=== PATIENT | female | born 1965 | race Caucasian/White ===

== ENCOUNTER 2018-01-16 19:14 | Observation (INO) ==
[2018-01-17] MEDS ORDERED: Bisacodyl 10 MG Supp RECTAL PRN (01:29)
[2018-01-17] MEDS ORDERED: Gadobutrol PF 10 MMOL/10 ML Vial (for RAD) IV.SIG ONE (01:30)
[2018-01-17] MEDS ORDERED: Dextrose 50% in Water 50 ML Vial IV.PUSH PRN (01:37)
[2018-01-17] MEDS: Insulin NovoLOG Aspart Correctional Sugar Inj SQ SCH ×5 (03:40→21:37)
[2018-01-17] MEDS: Sod Chloride 0.9% Inj 1,000 ML IV.CONT SCH ×2 (03:41→15:23)
[2018-01-17] MEDS: Aspirin 325 MG Tablet PO SCH (08:19)
--- NOTE | 2018-01-17 08:44 | US ---
EXAM DATE: 01/17/2018 8:37 AM EDT AGE/SEX: 52 years / Female INDICATIONS: Numbness in right face and hand. CLINICAL DATA: This is the patient's initial encounter. Patient reports that signs and symptoms have been present for 1 day and indicates a pain score of 0/10. MEDICAL/SURGICAL HISTORY: Hypertension. Cholecystectomy. Tubal ligation. Tonsillectomy. COMPARISON: No prior exams available for comparison. No external comparison. VELOCITY PARAMETERS: ICA/CCA Ratio: Right 0.9 , Left 1.0 ICA: Right 77 cm/sec, Left 89 cm/sec CCA: Right 86 cm/sec, Left 86 cm/sec ECA: Right 99 cm/sec, Left 117 cm/sec Vertebral: Right 41 cm/sec antegrade, Left 43 cm/sec antegrade FINDINGS: Right Carotid: No significant plaque is visualized.The waveforms are within normal limits. Left Carotid: No significant plaque is visualized. The waveforms are within normal limits. Other: None. CONCLUSION: No evidence of flow-limiting carotid stenosis. Electronically signed by: Kris Galvin MD 01/17/2018 8:43 AM EDT
--- NOTE | 2018-01-17 09:32 | ECHRPT ---
Indication: CVA/TIA CONCLUSIONS The left ventricular systolic function is normal with an estimated ejection fraction in the range of 60-65%. Normal left ventricular size. Wall thickness is normal. No definite regional wall motion abnormalities are present. Trace mitral valve regurgitation. Mild mitral annular calcification. BP: / HR: Rhythm: Sinus MEASUREMENTS (Male / Female) Normal Values Technical Quality:Poor 2D ECHO LV Diastolic Diameter PLAX 3.9 cm 4.2 - 5.9 / 3.9 - 5.3 cm LV Systolic Diameter PLAX 2.7 cm IVS Diastolic Thickness 1.0 cm 0.6 - 1.0 / 0.6 - 0.9 cm LVPW Diastolic Thickness 1.0 cm 0.6 - 1.0 / 0.6 - 0.9 cm LV Relative Wall Thickness 0.5 LVOT Diameter 1.7 cm LA Systolic Diameter LX 3.3 cm 3.0 - 4.0 / 2.7 - 3.8 cm LV Ejection Fraction MOD 4C 65.9 % LV Ejection Fraction 4C AL 66.9 % M-MODE Aortic Root Diameter MM 1.7 cm LA Systolic Diameter MM 3.3 cm LA Ao Ratio MM 1.9 AV Cusp Separation MM 2.0 cm DOPPLER AV Peak Velocity 162.0 cm/s AV Peak Gradient 10.5 mmHg LVOT Peak Velocity 100.0 cm/s LVOT Peak Gradient 4.0 mmHg AV Area Cont Eq pk 1.4 cm MV Area PHT 3.4 cm Mitral E Point Velocity 93.3 cm/s Mitral A Point Velocity 83.4 cm/s Mitral E to A Ratio 1.1 LV E' Lateral Velocity 6.8 cm/s Mitral E to LV E' Lateral Ratio 13.7 LV E' Septal Velocity 5.9 cm/s Mitral E to LV E' Septal Ratio 15.7 PV Peak Velocity 99.1 cm/s PV Peak Gradient 3.9 mmHg FINDINGS LEFT VENTRICLE The left ventricular systolic function is normal with an estimated ejection fraction in the range of 60-65%. Normal left ventricular size. Wall thickness is normal. No regional wall motion abnormalities are present. RIGHT VENTRICLE Normal right ventricular size and systolic function. LEFT ATRIUM The left atrial size is normal. RIGHT ATRIUM The right atrial size is normal. ATRIAL SEPTUM Normal atrial septal thickness without atrial level shunting by limited color doppler interrogation. AORTA The aortic root and proximal ascending aorta are normal in size on limited imaging. MITRAL VALVE Mild mitral annular calcification. Trace mitral valve regurgitation. AORTIC VALVE Trileaflet aortic valve. No aortic valve stenosis or regurgitation. TRICUSPID VALVE Structurally normal tricuspid valve. No tricuspid valve stenosis or regurgitation. PULMONARY VALVE The pulmonary valve is not well visualized. VESSELS The inferior vena cava is normal in size. PERICARDIUM No pericardial effusion. Jeison Toney MD (Electronically Signed) Final Date:17 January 2018 09:31
--- NOTE | 2018-01-17 11:06 | P.HP ---
History of Present Illness Primary Care Physician: alexander Ramirez Chief Complaint: Right facial numbness, right hand paresthesia History of Present Illness: 52-year-old female with known history of hypertension, diabetes who presented to the hospital for evaluation of right facial numbness and right hand paresthesia. Patient states that her symptoms started 3 days ago on Sunday where she woke up first thing in the morning with left facial numbness. She thought she just may have slept on it wrong and did not pay much attention to it. However the right facial numbness persisted over the next 2 days and then she started developing a right hand numbness and tingling sensation and because of the new symptoms she went to the emergency department for evaluation. Patient has CT scan done which was unremarkable for any acute stroke. Patient denies any visual disturbances, dysphagia, extremity weakness, disequilibrium, ataxia, expressive dysphasia. Patient was started on full dose aspirin and recommended observation the hospital for further neurological evaluation. - Diagnosis (1) Neurological symptoms (2) Right facial numbness (3) Right hand paresthesia Review of Systems All other systems reviewed negative except as stated in HPI Neurologic: Reports tingling/numbness/burning sensations (Right side of the face and right hand) [facility] - History History Provided By: Patient - Medical History Medical History: Medical History (Last Reviewed 01/17/18 @ 11:02 by AMY Oro) Diabetes HTN (hypertension) - Surgical History Surgical History: Surgical History (Last Reviewed 01/17/18 @ 11:02 by AMY Oro) History of cholecystectomy Hx of tonsillectomy Hx of tubal ligation - Family History Family History: Family History (Last Updated 01/17/18 @ 10:54 by AMY Oro) Mother History of diabetes mellitus History of heart disease Father History of diabetes mellitus - Tobacco History Second Hand Smoke Exposure: No Smoking Status: Never smoker - Alcohol History How Often Do You Have a Drink Containing Alcohol: Monthly or less - Substance Use History Substance History: No History of Abuse Medications and Allergies Active Medications: Active Medications Al Hydroxide/Mg Hydroxide (Milk Of Magnesia Liq) 30 ml PO Q12H PRN PRN Reason: Mild Constipation Aspirin (Aspirin) 325 mg PO DAILY LAYLA Last Admin: 01/17/18 08:19 Dose: 325 mg Bisacodyl (Dulcolax Supp) 10 mg RECTAL DAILY PRN PRN Reason: SEVERE CONSITIPATION Dextrose (D50w Vial) 50 ml IV.PUSH UNSCH PRN PRN Reason: PER HYPOGLYCEMIA PROTOCOL Glucagon (Glucagon Inj) 1 mg OTHER PRN PRN PRN Reason: for Hypoglycemia Protocol Sodium Chloride (Ns Inj) 1,000 mls @ 70 mls/hr IV.CONT .[id number] LAYLA Last Admin: 01/17/18 03:41 Dose: 70 mls/hr Insulin Aspart (Novolog Insulin Correctional Sugar Inj) 0 unit SQ ACHS AND 3AM LAYLA; Protocol Last Admin: 01/17/18 08:18 Dose: 5 unit Sennosides (Senokot) 17.2 mg PO Q12H PRN PRN Reason: Moderate Constipation Allergies Allergy/AdvReac Type Severity Reaction Status Date / Time Penicillins Allergy Severe Swelling Verified 01/16/18 19:28 Home Medications Medication Instructions Recorded Confirmed Type sitagliptin-metformin [Janumet] 1 tab PO BID 01/16/18 01/17/18 History gabapentin 600 mg PO TID 01/17/18 01/17/18 History insulin glargine [Lantus U-100 40 unit SUB-Q BID 01/17/18 01/17/18 History Insulin] losartan 50 mg PO DAILY 01/17/18 01/17/18 History Exam Vital signs: Vital Signs 01/17/18 00:00 01/17/18 01:00 01/17/18 04:00 Temperature 97.5 F L 96 F L Pulse Rate 84 76 75 Respiratory Rate 20 20 Blood Pressure 182/94 H 137/65 Pulse Oximetry 97 96 01/17/18 05:07 01/17/18 08:00 01/17/18 08:32 Temperature 96 F L 97.4 F L Pulse Rate 75 77 76 Respiratory Rate 20 16 Blood Pressure 137/65 124/61 Pulse Oximetry 96 96 Intake & Output 01/16/18 01/17/18 01/17/18 18:59 06:59 18:59 Intake Total 0 / 0 Balance 0 / 0 Weight 87.5 kg Intake: Oral 0 / 0 Other: # Voids 0 Weight On Admission 81.8 kg Narrative: GENERAL: Well-developed, well-nourished, in no acute distress. alert and orientated HEENT: Head is normocephalic without any lesions or masses noted. Facial features are symmetric. Eyes: Pupils equal round reactive to light. Extraocular muscles are intact. Conjunctivae were clear. Oropharyngeal: Pharynx without any erythema edema. Tongue is midline without deviation. Buccal mucosa is moist without any masses or lesions NECK: Supple without any masses. Trachea midline no deviation. No JVD, no bruits are appreciated CARDIAC: Regular rhythm, regular rate. S1/S2 are heard. No murmurs gallops or rubs. LUNGS: Clear to auscultation bilaterally. No wheeze, rhonchi or rales. No use of accessory muscles on inspiration or expiration. ABDOMEN: Soft, nontender. Nondistended. Bowel sounds heard in all 4 quadrants. No organomegaly or masses. Negative rebound, negative guarding EXTREMITIES: No edema, pulses are equal bilaterally. No cyanosis or clubbing NEUROLOGY: Mood and affect appear appropriate. Cranial nerves II through XII are grossly intact, muscle strength 5/5 in upper and lower extremities bilaterally. Deep tendon reflexes are 2+ in upper and lower extremities bilaterally. Results - Labs CBC & Chem 7: 01/17/18 10:51 01/17/18 10:51 Labs: Laboratory Results - last 24 hr 01/17/18 01/17/18 03:37 07:36 POC Glucose 296 H 256 H - Imaging Impressions Carotid Doppler Study 01/17/18 00:00 CONCLUSION: No evidence of flow-limiting carotid stenosis. Caprini VTE Risk Assessment Caprini VTE Risk Assessment: No/Low Risk (score <= 1) Caprini Risk Assessment Model: Point Value = 1 Point Value = 2 Point Value = 3 Point Value = 5 Age 41-60 Minor surgery BMI > 25 kg/m2 Swollen legs Varicose veins or History of unexplained or recurrent spontaneous Oral contraceptives or hormone replacement Sepsis (< 1 month) Serious lung disease, including pneumonia (< 1 month) Abnormal pulmonary function Acute myocardial infarction Congestive heart failure (< 1 month) History of inflammatory bowel disease Medical patient at bed rest Age 61-74 Arthroscopic surgery Major open surgery (> 45 min) Laparoscopic surgery (> 45 min) Malignancy Confined to bed (> 72 hours) Immobilizing plaster cast Central venous access Age >= 75 History of VTE Family history of VTE Factor V Leiden Prothrombin [id number] Lupus anticoagulant Anticardiolipin antibodies Elevated serum homocysteine Heparin-induced thrombocytopenia Other congenital or acquired thrombophilia Stroke (< 1 month) Elective arthroplasty Hip, pelvis, or leg fracture Acute spinal cord injury (< 1 month) Prophylaxis Regimen: Total Risk Factor Score Risk Level Prophylaxis Regimen 0-1 Low Early ambulation 2 Moderate Order ONE of the following: *Sequential Compression Device (SCD) *Heparin 5000 units SQ BID 3-4 Higher Order ONE of the following medications: *Heparin 5000 units SQ TID *Enoxaparin/Lovenox 40 mg SQ daily (WT < 150 kg, CrCl > 30 mL/min) *Enoxaparin/Lovenox 30 mg SQ daily (WT < 150 kg, CrCl > 10-29 mL/min) *Enoxaparin/Lovenox 30 mg SQ BID (WT < 150 kg, CrCl > 30 mL/min) AND/OR *Sequential Compression Device (SCD) 5 or more Highest Order ONE of the following medications: *Heparin 5000 units SQ TID (Preferred with Epidurals) *Enoxaparin/Lovenox 40 mg SQ daily (WT < 150 kg, CrCl > 30 mL/min) *Enoxaparin/Lovenox 30 mg SQ daily (WT < 150 kg, CrCl > 10-29 mL/min) *Enoxaparin/Lovenox 30 mg SQ BID (WT < 150 kg, CrCl > 30 mL/min) AND *Sequential Compression Device (SCD) Assessment and Plan - Assessment (1) Neurological symptoms Code(s): R29.90 - Unspecified symptoms and signs involving the nervous system Status: Acute (2) Right facial numbness Code(s): R20.0 - Anesthesia of skin Status: Acute (3) Right hand paresthesia Code(s): R20.2 - Paresthesia of skin Status: Acute - Plan Neurological symptoms with right facial numbness, right hand paresthesia -We will need to we will need to evaluate and rule out for CVA, Brennan's palsy, cervical radiculopathy -CT of the head did not indicate any acute abnormality -Brain were performed and indicated -Echocardiogram results above -Carotid ultrasound was unremarkable for any dynamically significant stenosis -Further laboratory studies to include B12, folate, sed rate, TSH, lipid panel, hemoglobin A1c -Continue aspirin -PT/OT/ST evaluations -Consult neurology for further recommendations Hypertension -Continue home medications Diabetes -Accu-Cheks with sliding scale insulin -Diabetic diet DVT prevention -Sequential compression devices
--- NOTE | 2018-01-17 11:06 | MR ---
EXAM DATE: 01/17/2018 10:50 AM EDT AGE/SEX: 52 years / Female INDICATIONS: CVA. Right sided numbness. CLINICAL DATA: This is the patient's initial encounter. Patient reports that signs and symptoms have been present for 1 day and indicates a pain score of 0/10. MEDICAL/SURGICAL HISTORY: Hypertension. Diabetes mellitus type II. Cholecystectomy. Tonsillec srinivasan. Tubal ligation. COMPARISON: No prior exams available for comparison. TECHNIQUE: 3D [id number] MRA was performed. Source images, multiplanar STS MIP, and 3D volum e MIP reconstructions were reviewed. FINDINGS: There is excellent visualization of the major intracranial arteries out to the second-order branch ve ssels. There is no evidence for aneurysm There or vascular malformation. There are findings of high- grade stenosis involving the M1 segment at its origin. Bolus infused CT angiography of the brain is r ecommended for further evaluation. There Is a origin of the posterior cerebral artery on the le ft. There is a patent posterior communicating artery on the right. CONCLUSION: Findings of high-grade stenosis at the origin of the right middle cerebral artery. Bolus infused CT a ngiography of the brain is recommended for further evaluation. Electronically signed by: Trent Nicholas MD 01/17/2018 11:05 AM EDT
[2018-01-17 11:07] LABS: Baso # (Auto) 0.1 th/mm3 (0.0-0.2); Baso % (Auto) 1.1 % (0.0-2.0); Eos # (Auto) 0.3 th/mm3 (0.0-0.4); Eos % (Auto) 4.3 % (0.0-4.0); Hematocrit 37.7 % (35.0-46.0); Lymph # (Auto) 2.3 th/mm3 (1.0-4.8); Lymph % (Auto) 32.1 % (9.0-44.0); Mean Corpuscular HGB Conc 31.9 % (32.0-36.0); Mean Corpuscular Hemoglobin 23.2 pg (27.0-34.0); Mean Corpuscular Volume 72.5 fL (80.0-100.0); Mean Platelet Volume 8.6 fL (7.0-11.0); Mono # (Auto) 0.6 th/mm3 (0.0-0.9); Mono % (Auto) 8.7 % (0.0-8.0); Neut # (Auto) 3.9 th/mm3 (1.8-7.7); Neut % (Auto) 53.8 % (16.0-70.0); Platelet Count 341 th/mm3 (150-450); Red Cell Distribution Width 17.3 % (11.6-17.2); White Blood Count 7.2 th/mm3 (4.0-11.0)
--- NOTE | 2018-01-17 11:22 | MR ---
EXAM DATE: 01/17/2018 10:50 AM EDT AGE/SEX: 52 years / Female INDICATIONS: CVA. Right sided numbness. CLINICAL DATA: This is the patient's initial encounter. Patient reports that signs and symptoms have been present for 1 day and indicates a pain score of 0/10. MEDICAL/SURGICAL HISTORY: Hypertension. Diabetes mellitus type II. Thyroidectomy. Tubal ligat ion. Cholecystectomy. COMPARISON: No prior exams available for comparison. TECHNIQUE: Multiplanar, multisequence examination of the brain was performed without contrast. FINDINGS: MRI of the brain is performed in sagittal, axial and coronal planes. The craniocervical junction and midline structures are unremarkable. Diffusion weighted images demonstrate no abnormality. No acute c ortical infarction, acute hemorrhage, mass effect or midline shift is seen.There is periventricular h yperintensity on the T2 weighted images consistent with small vessel vascular disease slightly more t benavides expected in a patient of this age. Posterior fossa structures are unremarkable. CONCLUSION: No evidence of acute intracranial pathology. Chronic ischemic changes as above. Some of the white ma tter lesions have an appearance consistent with multiple sclerosis and correlation with clinical hist ory is necessary. Electronically signed by: Trent Nicholas MD 01/17/2018 11:21 AM EDT
[2018-01-17 11:56] LABS: Albumin 3.2 g/dL (3.4-5.0); Calcium 8.2 mg/dL (8.5-10.1); Carbon Dioxide 28.7 meq/L (21.0-32.0); Glucose,Random 254 mg/dL (74-106)
[2018-01-17 11:57] LABS: Anion Gap 7 meq/L (5-15); Chloride 103 meq/L (98-107); Potassium 4.4 meq/L (3.5-5.1); Sodium 139 meq/L (136-145)
[2018-01-17 12:00] LABS: Aspartate Aminotransferase 17 U/L (15-37); Glomerular Filtration Rate Greater Than 89 mL/min (>89)
[2018-01-17] MEDS: Gabapentin 300 MG Capsule PO SCH ×2 (12:00→17:20)
[2018-01-17 12:01] LABS: Total Protein 7.8 g/dL (6.4-8.2)
[2018-01-17 12:02] LABS: Alkaline Phosphatase 66 U/L (45-117)
[2018-01-17 12:11] LABS: Alanine Aminotransferase 23 U/L (10-53)
[2018-01-17 12:14] LABS: Blood Urea Nitrogen 11 mg/dL (7-18)
[2018-01-17 14:17] LABS: Triglycerides 426 mg/dL (42-150)
[2018-01-17 14:22] LABS: Chol/HDL Ratio 9.93 Ratio; Cholesterol 287 mg/dL (120-200); HDL Cholesterol 28.9 mg/dL (40.0-60.0)
[2018-01-17 14:41] LABS: Vitamin B12 986 pg/mL (193-986)
--- NOTE | 2018-01-17 16:23 | CT ---
EXAM DATE: 01/17/2018 4:08 PM EDT AGE/SEX: 52 years / Female INDICATIONS: Right facial numbness. Right hand parasthenia. Abnormal MRI. CLINICAL DATA: This is the patient's initial encounter. Patient reports that signs and symptoms have been present for 4 - 6 days and indicates a pain score of 0/10. MEDICAL/SURGICAL HISTORY: Diabetes. Hypertension. Tubal ligation. Cholecystectomy. RADIATION DOSE: 41.90 CTDI (mGy) COMPARISON: [facility], CT HEAD W/O CONTRAST, 01/16/2018. . TECHNIQUE: Volumetric scanning was performed using a multi-row detector CT scanner during bolus infu addie of 75 ml Omnipaque 350 (iohexol) nonionic water-soluble contrast as a single exam dose. The d shahid was post processed with a variety of visualization algorithms including full volume maximum inten sity projection, multi-planar sliding thin slab reformation, curved planar reformation, and surface r endering techniques. Using automated exposure control and adjustment of the mA and/or kV according t o patient size, radiation dose was kept as low as reasonably achievable to obtain optimal diagnostic quality images. DICOM format image data is available electronically for review and comparison. FINDINGS: CT angiography of the brain does confirm high-grade stenosis greater than 90% involving the proximal 5 mm of the right M1 segment. There is stenosis in the 50-60% range distally this. The left middle ce rebral artery is intact though there is diffuse 60% stenosis involving the clinoid segment of the car otid artery on the left. Examination of posterior fossa also demonstrates no evidence of aneurysm or vascular malformation. Th e vertebral arteries are codominant. There is a patent posterior communicating artery on the right. T here is a origin of the posterior cerebral artery on the left. CONCLUSION: 1. 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 Other intracranial stenoses as above. Electronically signed by: Trent Nicholas MD 01/17/2018 4:21 PM EDT
[2018-01-17 16:35] LABS: Hemoglobin A1c 13.5 % (4.3-6.0)
--- NOTE | 2018-01-17 21:57 | MB ---
cc: Trent Richey MD DATE: 01/17/2018 HISTORY OF PRESENT ILLNESS: A 52-year-old right-handed woman with a history of hypertension, insulin-dependent diabetes, hypercholesterolemia. She has had vertigo on and off for the last 3 months. On Sunday, she woke up and the right side of her face was a little numb and tingly. It seemed to get better. She went to bed, woke up, it was still there on Sunday. Then yesterday, the right side of her tongue began to be a little bit numb and she had a little bit of tingling in the right fingers and came into the hospital. No chest pain, palpitations, or headache. REVIEW OF SYSTEMS: She denies any history of NE, stents, angioplasty, atrial fibrillation, Coumadin, renal, hepatic or pulmonary disease, thyroid disease, lupus, ulcer, cancer, seizure, stroke. SOCIAL HISTORY: Nonsmoker. Occasionally has a drink. Lives with her . FAMILY HISTORY: Negative cancer and stroke. MEDICATIONS AT HOME: 1. Insulin. 2. Gabapentin 600 mg t.i.d. for neuropathy. 3. Losartan. 4. Janumet. She was not taking an aspirin today. I do think she follows her sugars regularly at home. PHYSICAL EXAMINATION: VITAL SIGNS: On exam, she had been in sinus rhythm, afebrile, pulse 86, respirations, blood pressure 182/94 to 124/61. There were no carotid bruits. HEART: Regular rate and rhythm, I not detect a murmur. NEUROLOGIC: Pupils are equal. Visual cesar are full. Extraocular movements intact with a few beats of nystagmus on the left. She has had some vertigo in the past as noted, a few months. Tongue was midline with normal sensation of the tongue. There is no drift. She has normal strength in upper and lower extremities bilaterally, especially the right hand. Fast finger movements were normal in the right hand. DTRs are trace to absent throughout. Toes are downgoing bilaterally. Pinprick is diminished up to the knee bilaterally, but intact in the hands bilaterally and intact in the ulnar and median nerve distribution and the face bilaterally and the tongue bilaterally. It is not intact on [id number]. NEUROLOGIC: Speech is fluent. She is not aphasic. No facial droop is noted. LABORATORY DATA: MRI of the brain: The mastoids looked fine. There are some white matter changes bilaterally, nothing I would say is definitely MS. Diffusion image: A little bit of hyperintensity in the left mid brain may be artifactual. CTA of the head shows a significant right MCA disease about 90%, correlates with an MRA of the head. Two of the left-sided white matter changes are perpendicular to the ventricles. Other labs, CBC essentially normal. Sedimentation rate is 5. RPR pending. BMP is normal. Glucose she said was 400 yesterday morning; 278 here. LFTs normal. LDL not reportable. Triglycerides 426, total cholesterol 287. B12, folate, thyroid normal. Echocardiogram was negative; left atrial size, normal valves, normal. IMPRESSION: I think more likely a TIA probably small vessel. I want to recheck her MRI with some sagittal FLAIR just look in case there is any evidence for MS, but I think considering her age and her risk factors, it is unlikely that this is a new onset of MS, and I think probably more of a small vessel, TIA or stroke warning. The right middle cerebral artery stenosis is quite impressive; however, appears to be asymptomatic and I would treat her with 325 aspirin and statin. I have recommended she get weight loss and get her sugars down. We will check an MRA of her neck and if that looks okay and the repeat MRI is negative, she could be discharged tomorrow. Also, check a hypercoagulable screen. ADDENDUM: Looking at her MRI, there are a few white matter spots on the right side, a little bit more bright or hyperintense than what I see for the white matter spots on the left side. It is possible, right MCA stenosis, which is significant and severe, just says it comes off the internal carotid artery on the right side, could be causing some small infarcts, even though she has not had any symptoms on the left side of her body or vision loss to the left, which would indicate it was clinically symptomatic. I will talk with radiology about what they think about possibly stenting it. The studies have shown that for the intracranial stenosis the best medical treatment is about equal to stenting; however, she does not have any collateral flow as far as I can see from the [place] of [place] to that artery, and a concern is if she were to block it off entirely, she could have a large right MCA infarct. MD Lakshmi Cervantes , 09:23 PM , 09:31 PM
[2018-01-18] MEDS: Insulin NovoLOG Aspart Correctional Sugar Inj SQ SCH ×5 (03:18→22:00)
[2018-01-18] MEDS: Sod Chloride 0.9% Inj 1,000 ML IV.CONT SCH ×2 (05:59→22:00)
[2018-01-18 08:00] LABS: Chloride 105 meq/L (98-107); Potassium 3.9 meq/L (3.5-5.1); Sodium 138 meq/L (136-145)
[2018-01-18 08:04] LABS: Calcium 7.6 mg/dL (8.5-10.1)
[2018-01-18 08:05] LABS: Anion Gap 9 meq/L (5-15); Blood Urea Nitrogen 12 mg/dL (7-18); Carbon Dioxide 23.7 meq/L (21.0-32.0); Glucose,Random 300 mg/dL (74-106)
[2018-01-18 08:08] LABS: Glomerular Filtration Rate Greater Than 89 mL/min (>89)
[2018-01-18] MEDS: Aspirin 325 MG Tablet PO SCH (08:23)
[2018-01-18] MEDS: Gabapentin 300 MG Capsule PO SCH ×3 (08:24→17:17)
--- NOTE | 2018-01-18 11:35 | P.PN ---
Subjective Interval history: 52-year-old female who is seen and examined today for follow-up on TIA versus CVA. Patient just got back from having repeat MRIs performed. Patient is resting comfortably. States that she still has some minimal numbness to her right cheek. Vital signs are stable. Patient remains afebrile. Physical Exam Vital signs: Vital Signs 01/17/18 13:32 01/17/18 17:14 01/17/18 20:00 Temperature 97.0 F L 98.1 F 98.4 F Pulse Rate 77 81 86 Respiratory Rate 16 16 16 Blood Pressure 164/76 H 149/74 H 161/77 H Pulse Oximetry 97 95 98 01/18/18 00:00 01/18/18 01:03 01/18/18 01:09 Temperature 98.4 F Pulse Rate 85 81 Respiratory Rate 16 18 Blood Pressure 150/78 H Pulse Oximetry 99 01/18/18 04:00 01/18/18 08:00 Temperature 97.3 F L 97.2 F L Pulse Rate 78 74 Respiratory Rate 16 17 Blood Pressure 122/60 144/89 H Pulse Oximetry 100 Intake & Output 01/17/18 01/18/18 01/18/18 18:59 06:59 18:59 Intake Total 2300 / 2300 1250 / 1250 Balance 2300 / 2300 1250 / 1250 Weight 87.3 kg Intake: IV 1000 / 1000 1000 / 1000 NS Inj 1,000 ML @ 70 mls/hr IV. 1000 / 1000 1000 / 1000 CONT .[id number] [facility] Rx#: [id number] Oral 1300 / 1300 250 / 250 Other: # Voids 2 1 Date of Last Bowel Movement 01/17/18 Narrative: GENERAL: Well-developed, well-nourished, in no acute distress. alert and orientated HEENT: Head is normocephalic without any lesions or masses noted. Facial features are symmetric. Eyes: Extraocular muscles are intact. Conjunctivae were clear. NECK: Supple without any masses. Trachea midline no deviation. No JVD, CARDIAC: Regular rhythm, regular rate. S1/S2 are heard. No murmurs gallops or rubs. LUNGS: Clear to auscultation bilaterally. No wheeze, rhonchi or rales. No use of accessory muscles on inspiration or expiration. ABDOMEN: Soft, nontender. Nondistended. Bowel sounds heard in all 4 quadrants. No organomegaly or masses. Negative rebound, negative guarding EXTREMITIES: No edema, pulses are equal bilaterally. No cyanosis or clubbing NEUROLOGY: Mood and affect appear appropriate. Cranial nerves II through XII grossly intact. Results - Labs CBC & Chem 7: 01/17/18 10:51 01/18/18 06:45 Laboratory Results - last 24 hr 01/17/18 01/17/18 01/17/18 10:51 10:51 10:51 WBC Differential . Diff Scan Auto diff confirmed ESR 5 Sodium 139 Potassium 4.4 Chloride 103 Carbon Dioxide 28.7 Anion Gap 7 BUN 11 Creatinine 0.57 Estimated GFR Greater than 89 POC Glucose Random Glucose 254 H D Hemoglobin A1c Calcium 8.2 L D Total Bilirubin 0.2 AST 17 ALT 23 Alkaline Phosphatase 66 Total Protein 7.8 Albumin 3.2 L Triglycerides 426 H Cholesterol 287 H LDL Cholesterol, Calc Not Reportable HDL Cholesterol 28.9 L Cholesterol/HDL Ratio 9.93 Vitamin B12 Folate TSH Beta HCG, Quant RPR 01/17/18 01/17/18 01/17/18 10:51 10:51 10:51 WBC Differential Diff Scan ESR Sodium Potassium Chloride Carbon Dioxide Anion Gap BUN Creatinine Estimated GFR POC Glucose Random Glucose Hemoglobin A1c 13.5 H Calcium Total Bilirubin AST ALT Alkaline Phosphatase Total Protein Albumin Triglycerides Cholesterol LDL Cholesterol, Calc HDL Cholesterol Cholesterol/HDL Ratio Vitamin B12 986 Folate Greater than 20.0 H TSH 2.300 Beta HCG, Quant RPR Nonreactive 01/17/18 01/17/18 01/17/18 11:35 17:06 21:22 WBC Differential Diff Scan ESR Sodium Potassium Chloride Carbon Dioxide Anion Gap BUN Creatinine Estimated GFR POC Glucose 278 H 277 H 286 H Random Glucose Hemoglobin A1c Calcium Total Bilirubin AST ALT Alkaline Phosphatase Total Protein Albumin Triglycerides Cholesterol LDL Cholesterol, Calc HDL Cholesterol Cholesterol/HDL Ratio Vitamin B12 Folate TSH Beta HCG, Quant RPR 01/17/18 01/18/18 01/18/18 21:48 03:04 06:45 WBC Differential Diff Scan ESR Sodium 138 Potassium 3.9 Chloride 105 Carbon Dioxide 23.7 Anion Gap 9 BUN 12 Creatinine 0.49 L Estimated GFR Greater than 89 POC Glucose 271 H Random Glucose 300 H Hemoglobin A1c Calcium 7.6 L Total Bilirubin AST ALT Alkaline Phosphatase Total Protein Albumin Triglycerides Cholesterol LDL Cholesterol, Calc HDL Cholesterol Cholesterol/HDL Ratio Vitamin B12 Folate TSH Beta HCG, Quant Less than 1 RPR 01/18/18 07:45 WBC Differential Diff Scan ESR Sodium Potassium Chloride Carbon Dioxide Anion Gap BUN Creatinine Estimated GFR POC Glucose 328 H Random Glucose Hemoglobin A1c Calcium Total Bilirubin AST ALT Alkaline Phosphatase Total Protein Albumin Triglycerides Cholesterol LDL Cholesterol, Calc HDL Cholesterol Cholesterol/HDL Ratio Vitamin B12 Folate TSH Beta HCG, Quant RPR - Imaging Impressions Head CTA 01/17/18 00:00 CONCLUSION: 1. 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 Other intracranial stenoses as above. Assessment and Plan - Assessment (1) Neurological symptoms Code(s): R29.90 - Unspecified symptoms and signs involving the nervous system Status: Acute (2) Right facial numbness Code(s): R20.0 - Anesthesia of skin Status: Acute (3) Right hand paresthesia Code(s): R20.2 - Paresthesia of skin Status: Acute - Plan Neurological symptoms with right facial numbness, right hand paresthesia -We will need to we will need to evaluate and rule out for CVA, Brennan's palsy, cervical radiculopathy -CT of the head did not indicate any acute abnormality -MRI of the brain was performed and indicated chronic ischemic changes, no evidence of acute intracranial pathology. White matter lesions have a. Consistent with MS. -MRA of the brain shows high-grade stenosis at the origin of the right middle cerebral artery. CTA angiography was recommended -CTA angiography was performed and confirmed high-grade stenosis greater than 90 % involving the M1 segment of the right middle cerebral artery -Echocardiogram results above -Carotid ultrasound was unremarkable for any dynamically significant stenosis -Further laboratory studies to include B12, folate, sed rate, TSH were unremarkable -Lipid panel indicating LDL is not reportable due to lipemic specimen. Patient started on Lipitor 40 mg daily -Continue aspirin -PT/OT/ST evaluations -Consult neurology for further recommendations, who recommended repeat MRI of the brain, MRA of the carotids, hypercoagulable panel. Indicate that if MRIs are unremarkable then patient can be discharged home on aspirin. Hypertension -Continue home medications Diabetes -Accu-Cheks with sliding scale insulin -Diabetic diet -Hemoglobin A1c 13.5 DVT prevention -Sequential compression devices Discharge Planning: Discharge home in stable condition Activity: Ad nikki. Diet: Diabetic diet Medication per medication reconciliation Follow-up with primary medical doctor in 1 week
--- NOTE | 2018-01-18 12:38 | MR ---
EXAM DATE: 01/18/2018 12:25 PM EDT AGE/SEX: 52 years / Female INDICATIONS: . Right side numbness. CLINICAL DATA: This is the patient's initial encounter. Patient reports that signs and symptoms have been present for 1 day and indicates a pain score of 0/10. MEDICAL/SURGICAL HISTORY: Diabetes mellitus type II. Hypertension. Cholecystectomy. Tubal lig ation. Tonsillectomy. COMPARISON: HPO, MRA HEAD W/O CONTRAST, 01/17/2018. . TECHNIQUE: Multiplanar, multisequence examination of the brain was performed without and with 10 ml G adavist (gadobutrol) contrast as a single exam dose. FINDINGS: Cerebrum: Injured for size is appropriate. There is no parenchymal hemorrhage, acute infarction or m ass lesion. There is no restricted diffusion to suggest an ischemic event. White Matter: Minimal nonspecific white matter changes in a typical fashion. This could be evidence for a demyelinating process. Posterior Fossa: The cerebellum and brainstem are intact. The 4th ventricle is midline. The cerebel lopontine angle is unremarkable. The cerebellar tonsils are normal in position. Diffusion Imaging: No focal areas of restricted diffusion are seen. No evidence of acute infarction . Extracranial: The visualized portions of the orbits and paranasal sinuses are unremarkable. Post Contrast: No abnormal contrast enhancement. CONCLUSION: 1. Minimal periventricular white matter changes oriented along the subcortical U fibers that could b e evidence for a demyelinating process. 2. Negative for ischemia. MRA of the brain had shown a high-grade origin stenosis right MCA. Vasculitis could be consideration as well. Electronically signed by: Shad Najera MD 01/18/2018 12:37 PM EDT
--- NOTE | 2018-01-18 12:46 | MR ---
EXAM DATE: 01/18/2018 12:24 PM EDT AGE/SEX: 52 years / Female INDICATIONS: . Right side numbness. CLINICAL DATA: This is the patient's initial encounter. Patient reports that signs and symptoms have been present for 1 day and indicates a pain score of 0/10. MEDICAL/SURGICAL HISTORY: Hypertension. Diabetes mellitus type II. Cholecystectomy. Tonsillec srinivasan. Tubal ligation. COMPARISON: No prior exams available for comparison. TECHNIQUE: 10 ml Gadavist (gadobutrol) contrast infused MRA (single exam dose) of the extracranial circulation was performed using a neurovascular coil. Postprocessing was performed, including rotati ng sub-volume maximum intensity projections of each carotid artery, rotating full-volume maximum inte nsity projections of both carotid arteries, sagittal and coronal sliding thin-slab reformations of ea ch carotid artery, and left oblique sliding thin-slab reformation through the aortic arch to include the origin of the arch branch vessels. FINDINGS: Aortic Arch : There is a three-vessel origin of the great vessels from the aorta. No evidence of o stial narrowing. Right Carotid : The common carotid artery is intact. The carotid bulb has a normal configuration wi thout ulceration or narrowing. The internal carotid artery lumen is smooth without stenosis. The ex ternal carotid artery is intact. Left Carotid : The common carotid artery is intact. The carotid bulb has a normal configuration wit hout ulceration or narrowing. The internal carotid artery lumen is smooth without stenosis. The ext ernal carotid artery is intact. Vertebrals : The vertebral arteries have a symmetric diameter. No stenotic lesions are seen. CONCLUSION: 1. Negative MRA of the carotids for hemodynamically significant stenosis 2. Both vertebral are patent with the left dominant. Percent stenosis is calculated using the diameter of the stenotic region over the diameter of the nor mal distal internal carotid artery Electronically signed by: Shad Najera MD 01/18/2018 12:45 PM EDT
[2018-01-18] MEDS ORDERED: Gadobutrol PF 10 MMOL/10 ML Vial (for RAD) IV.SIG ONE (14:04)
[2018-01-18 20:53] VITALS: RESP 16
[2018-01-19] MEDS: Insulin NovoLOG Aspart Correctional Sugar Inj SQ SCH ×3 (02:26→12:09)
[2018-01-19] MEDS: Aspirin 325 MG Tablet PO SCH (08:24)
[2018-01-19] MEDS: Gabapentin 300 MG Capsule PO SCH ×2 (08:25→13:48)
[2018-01-19] MEDS ORDERED: Insulin Detemir Inj 1,000 UNIT/10 ML Vial SQ SCH (09:00)
[2018-01-19] MEDS: Sod Chloride 0.9% Inj 1,000 ML IV.CONT SCH (10:56)
--- NOTE | 2018-01-19 13:08 | P.DS ---
Date of admission: 01/17/18 01:29 Primary care physician: alexander Ramirez Attending physician on discharge: Owen Hunter Anticipated date of discharge: 01/19/18 Brief History from admission: 52-year-old female with known history of hypertension, diabetes who presented to the hospital for evaluation of right facial numbness and right hand paresthesia. Patient states that her symptoms started 3 days ago on Sunday where she woke up first thing in the morning with left facial numbness. She thought she just may have slept on it wrong and did not pay much attention to it. However the right facial numbness persisted over the next 2 days and then she started developing a right hand numbness and tingling sensation and because of the new symptoms she went to the emergency department for evaluation. Patient has CT scan done which was unremarkable for any acute stroke. Patient denies any visual disturbances, dysphagia, extremity weakness, disequilibrium, ataxia, expressive dysphasia. Patient was started on full dose aspirin and recommended observation the hospital for further neurological evaluation. DS: Diagnosis - Discharge Diagnosis (1) Neurological symptoms Status: Acute (2) Right facial numbness Status: Acute (3) Right hand paresthesia Status: Acute DS: Medications - Discharge Medications Prescriptions: aspirin 325 mg PO DAILY #30 tab atorvastatin 40 mg PO DAILY #30 tab DS: Summary Hospital Course: 52-year-old female with known history of hypertension, diabetes who originally presented the hospital because of right facial numbness right-sided numbness. Patient had full neurological workup performed with MRI of the brain which indicated chronic ischemic changes white matter lesions that has appearance consistent with multiple sclerosis. Neurologist recommended repeat MRI to evaluate for MS with increased diffusion studies which still showed minimal periventricular white matter changes which could be evidence of demyelinating process. No signs of ischemia. MRA was performed which did show high-grade stenosis of right MCA. Radiologist recommended CTA to be performed which was done and still indicated high-grade stenosis of the right MCA. Carotid ultrasound was done which did not indicate any acute abnormality, neck MRA was performed which did not indicate any carotid abnormality. Patient was started on aspirin, lipid panel was performed which did indicated that LDL cannot be calculated due to severe lipemia. Patient was started on Lipitor 40 mg daily. Neurology evaluated the patient and indicated that more likely a TIA probable small vessel. In reference to the right-sided MCA stenosis which is severe. Even though patient has symptoms on the left side with the findings noted on the left side the stenosis could be clinically significant. According to neurology documentation the study shown that for the intracranial stenosis the best medical treatment is about equal to stenting. Neurologist indicated that we will need to speak to radiology to discuss intervention. Recommending aspirin 325 mg daily and statin. Neurologist is concerned that if patient has complete obstruction of the right MCA that she could have a very large infarct. Patient remains clinically stable at this time. Patient is very eager to go home. - Time Spent with Patient Total time spent providing and/or coordinating discharge services: Greater than 30 minutes - Quality: VTE Deep Vein Thrombosis/Pulmonary Embolism Present on Admission: No Exam Vital signs: Vital Signs 01/18/18 16:00 01/18/18 20:00 01/19/18 00:00 Temperature 97.7 F 98.1 F 98.2 F Pulse Rate 78 81 80 Respiratory Rate 22 16 16 Blood Pressure 191/82 H 166/86 H 147/67 H Pulse Oximetry 100 100 98 01/19/18 04:00 01/19/18 08:00 Temperature 98.4 F 97.7 F Pulse Rate 88 81 Respiratory Rate 16 16 Blood Pressure 140/71 127/66 Pulse Oximetry 99 98 Intake & Output 01/18/18 01/19/18 01/19/18 18:59 06:59 18:59 Intake Total 240 / 240 1000 / 1000 1000 / 1000 Balance 240 / 240 1000 / 1000 1000 / 1000 Weight 88.3 kg Intake: IV 1000 / 1000 1000 / 1000 NS Inj 1,000 ML @ 70 mls/hr IV. 1000 / 1000 1000 / 1000 CONT .[id number] [facility] Rx#: [id number] Oral 240 / 240 Other: # Voids 1 Date of Last Bowel Movement 01/18/18 Narrative: GENERAL: Well-developed, well-nourished, in no acute distress. alert and orientated HEENT: Head is normocephalic without any lesions or masses noted. Facial features are symmetric. Eyes: Extraocular muscles are intact. Conjunctivae were clear. NECK: Supple without any masses. Trachea midline no deviation. No JVD, CARDIAC: Regular rhythm, regular rate. S1/S2 are heard. No murmurs gallops or rubs. LUNGS: Clear to auscultation bilaterally. No wheeze, rhonchi or rales. No use of accessory muscles on inspiration or expiration. ABDOMEN: Soft, nontender. Nondistended. Bowel sounds heard in all 4 quadrants. No organomegaly or masses. Negative rebound, negative guarding EXTREMITIES: No edema, pulses are equal bilaterally. No cyanosis or clubbing NEUROLOGY: Mood and affect appear appropriate. Cranial nerves II through XII grossly intact. Results Procedures completed during hospitalization: ECHOCARDIOGRAM CONCLUSIONS The left ventricular systolic function is normal with an estimated ejection fraction in the range of 60-65%. Normal left ventricular size. Wall thickness is normal. No definite regional wall motion abnormalities are present. Trace mitral valve regurgitation. Mild mitral annular calcification. Labs on day of discharge: Labs from last 24 hours 01/19/18 01/19/18 01/19/18 11:28 07:45 02:20 POC Glucose 249 H 332 H 286 H BLACK Screen 01/18/18 01/18/18 01/17/18 21:52 16:30 21:48 POC Glucose 269 H 209 H BLACK Screen Neg - Impressions ITS Impressions Carotid Doppler Study 01/17/18 00:00 CONCLUSION: No evidence of flow-limiting carotid stenosis. Head CTA 01/17/18 00:00 CONCLUSION: 1. 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 Other intracranial stenoses as above. Head MRA 01/17/18 00:00 CONCLUSION: Findings of high-grade stenosis at the origin of the right middle cerebral artery. Bolus infused CT angiography of the brain is recommended for further evaluation. Neck MRA 01/18/18 00:00 CONCLUSION: 1. Negative MRA of the carotids for hemodynamically significant stenosis 2. Both vertebral are patent with the left dominant. Percent stenosis is calculated using the diameter of the stenotic region over the diameter of the normal distal internal carotid artery Head MRI 01/18/18 21:22 CONCLUSION: 1. Minimal periventricular white matter changes oriented along the subcortical U fibers that could be evidence for a demyelinating process. 2. Negative for ischemia. MRA of the brain had shown a high-grade origin stenosis right MCA. Vasculitis could be consideration as well. Discharge Plan - Physicians Team Attending Provider: Owen Hunter Other Providers: Trent Reid MD - Rxs /Orders / Referrals /Forms Prescriptions: New aspirin 325 mg Tablet 325 mg PO DAILY Qty: 30 RF: 0 atorvastatin 40 mg Tablet 40 mg PO DAILY Qty: 30 RF: 0 Continue gabapentin 600 mg Tablet 600 mg PO TID losartan tablet 50 mg PO DAILY sitagliptin-metformin [Janumet] 50-1,000 mg Tablet 1 tab PO BID Changed insulin glargine [Lantus U-100 Insulin] 100 unit/mL Solution 10 unit SUB-Q BID Qty: 0 RF: 0 Changed from: 40 unit subcutaneous twice daily Referrals: alexander Ramirez [Other] - See Instructions
[2018-01-19 13:49] VITALS: BP 178/80; PULSE 85; TEMP 98; O2SAT 100
--- NOTE | 2018-01-20 12:47 | HM ---
Date Performed: 01/18/2018 Time Performed: 16:27:00 HOOKUP DATE: 01/18/18 04:27:00 PM Fri ANALYSIS START TIME: 01/18/2018 4:32:00 PM ANALYSIS END TIME: 01/19/2018 4:16:58 PM PATIENT AGE: 52 PATIENT HEIGHT: 66 PATIENT WEIGHT: 192 DRUG LIST: ROOM [id number] PATIENT DIAGNOSIS: TIA VS CVA TEST NARRATIVE: The patient's average heart rate was 81 BPM. No episodes of tachycardia wer e noted. No episodes of bradycardia were noted. No pauses exceeding 2.0 seconds were noted. 3 ventricular ectopics, which represented < 1% of the total beat count, were noted. The highest vent ricular ectopic frequency occurred from 10:00 AM to 11:00 AM Sat. During this time 2 VE(s) occurred. Ventricular ectopics were observed as 3 isolated beat(s) only. No couplets or runs were noted. 7 supraventricular ectopics, which represented < 1% of the total beat count, were noted. The highes t supraventricular ectopic frequency occurred from 11:00 PM to 12:00 AM Sat. During this time 2 SVE( s) occurred. No episodes of ST depression (defined as -1.0 mm or more) were noted in channel 1. No episodes of ST depression (defined as -1.0 mm or more) were noted in channel 2. No episodes of ST depression (defined as -1.0 mm or more) were noted in channel 3. NO DIARY WAS GIVEN TO PATIENT TEST INTERPRETATION: Holter monitor demonstrates Sinus rhythm with a very rare PAC and PVC. No other significant changes are noted. Signed by : Trent Santos
[2018-01-21 03:50] LABS: Homocysteine (Cardiovascular) 9.7 umol/L (<10.4)
[2018-01-21 13:52] LABS: Dil Russell Viper Venom Conf ( ND (NEGATIVE); Dil Russell Viper Venom Time M ND (CORRECTED); Lupus Anticoagulant PTT Screen 27 seconds (< OR = 40)
[2018-01-22 03:51] LABS: Activated Protein C Resistance 4.4 ratio (> OR = 2.1)
[2018-01-23 19:01] LABS: Factor V Leiden Mutation Negative (Negative); Protein C Antigen 187 % (70-150)
== END 2018-01-19 16:35 | disposition home or self-care (01) ==
LOC: PHEDDLT 19:14 → PH3 23:42 → INTOOBSV 23:42
PROVIDERS: ADMIT Hospitalist; ATTEND Hospitalist